=== PATIENT | female | born 1950 | race Caucasian/White ===

== ENCOUNTER → 2017-01-11 | Outpatient (CLI) | payer MEDICARE | END | disposition home or self-care (01) | LOC: GMAJ 12:04 | PROVIDERS: ATTEND Family Medicine | DX: M25.561 Pain in right knee (principal) ==

== ENCOUNTER → 2017-01-11 | Outpatient (CLI) | payer MEDICARE ==
--- NOTE | 2017-01-12 08:30 | US ---
EXAM DESCRIPTION: Venous,Lower Extremity RT CLINICAL HISTORY: Right leg pain. COMPARISON: None Available. TECHNIQUE: Right lower extremity venous grayscale, spectral, and color Doppler sonographic images. FINDINGS: There is no DVT identified. There is normal color flow observed with good flow augmentation. All deep veins compress normally. IMPRESSION: Negative for DVT Electronically signed by: Mack Tripp MD 01/12/2017 8:29 AM CDT
--- NOTE | 2017-01-12 09:13 | MRI ---
MRI right knee without contrast INDICATION: Knee pain primarily arthritis TECHNIQUE: Noncontrast MR imaging right knee standard protocol FINDINGS: There is a large joint effusion. Small Leong's cyst. There is advanced multifocal grade 4 chondrosis with osteoarthrosis and joint space narrowing lateral patellofemoral joint. Moderate lateral patellofemoral tracking/subluxation. Multifocal subchondral edema and cystic change in the lateral patellofemoral joint. Extensor tendons are intact. The sagittal plane of imaging is angled with the medial femoral condyle instead of the lateral which produces the indistinct appearance of the cruciate ligaments. There is no evidence of acute cruciate ligament disruption. There is diffuse degenerative signal posterior horn medial meniscus with mild fraying posteriorly. Mild degenerative change lateral meniscus as well especially posterior horn. The plane of imaging also produces an abnormal appearance of the menisci. There is scarring/fibrosis in the anterior intercondylar region at the posterior margin of Hoffa's fat. Multifocal chondral fissuring in the tibiofemoral compartments up to grade 4 indicating mild osteoarthrosis of the tibiofemoral compartments. No disruption of the collateral ligaments. IMPRESSION: Tricompartmental chondrosis up to grade 4 with osteoarthrosis most pronounced in the lateral patellofemoral compartment Lateral patellar tracking/subluxation Large joint effusion and small Leong's cyst Degenerative menisci Otherwise see above discussion Electronically signed by: Tutu Leon MD 01/12/2017 9:13 AM CDT
== END | disposition home or self-care (01) ==
LOC: MRI 11:59
PROVIDERS: ATTEND Family Medicine
DX: M17.11 Unilateral primary osteoarthritis, right knee (principal); R60.0 Localized edema

== ENCOUNTER → 2017-02-17 | Outpatient (CLI) | payer MEDICARE ==
--- NOTE | 2017-02-18 09:58 | MAM ---
History: Well woman exam. Date of exam: 02/17/2017 Services provided: Bilateral full field digital screening mammography. CAD, the images were reviewed with R2 computer aided detection. FINDINGS: Glandular tissue is scattered glandular contour with nodular pattern and increased mammographic density is compared with study from 2012. No dominant mass, architectural distortion or clustered microcalcification. IMPRESSION: Benign exam Recommendation: Routine annual mammography BIRAD CATEGORY: 2 BENIGN Electronically signed by: Jessi Yang MD 02/18/2017 9:58 AM CDT Workstation: [id number]
== END | disposition home or self-care (01) ==
LOC: MAMMO 09:33
PROVIDERS: ATTEND Family Medicine
DX: Z12.31 Encounter for screening mammogram for malignant neoplasm of breast (principal)

== ENCOUNTER → 2017-06-15 | Outpatient (CLI) | payer MEDICARE | END | disposition home or self-care (01) | LOC: GMAJ 11:26 | PROVIDERS: ATTEND Family Medicine | DX: E03.9 Hypothyroidism, unspecified (principal) ==

== ENCOUNTER → 2017-10-12 | Outpatient (CLI) | payer MEDICARE | LOC: GMAJ 11:53 | PROVIDERS: ATTEND Family Medicine | DX: E03.9 Hypothyroidism, unspecified (principal) ==

== ENCOUNTER → 2017-11-01 | Outpatient (CLI) | payer MEDICARE | LOC: RESP 13:53 | PROVIDERS: ATTEND Family Medicine | DX: R30.0 Dysuria (principal); N99.3 Prolapse of vaginal vault after hysterectomy; R94.31 Abnormal electrocardiogram [ECG] [EKG] ==

== ENCOUNTER → 2018-02-07 | Outpatient (CLI) | payer MEDICARE | LOC: GMAJ 11:03 | PROVIDERS: ATTEND Family Medicine | DX: E03.9 Hypothyroidism, unspecified (principal) ==

== ENCOUNTER → 2018-03-01 | Outpatient (CLI) | payer MEDICARE ==
--- NOTE | 2018-03-07 08:59 | MAM ---
EXAM DESCRIPTION: 3D Screening BILATERAL : Digital Mammography. CLINICAL HISTORY: 68 years Female SCREENING . No complaints. 2 sisters with breast cancer. Childbirth. Postmenopausal. No HRT. COMPARISON: 2-D digital screening bilateral study 02/17/2017. Report from prior examination also reviewed. TECHNIQUE: Bilateral CC and MLO projection full-field images, 3-D tomosynthesis digital mammographic technique. CAD not utilized. FINDINGS: The breast parenchymal density pattern is: Heterogeneously dense breast tissue, which may obscure small masses. No skin thickening or nipple retraction. Bilateral solitary microcalcifications. Bilateral intramammary lymph nodes. No new focal, stellate mass or density, focal asymmetry , and no suspicious microcalcifications bilaterally. Stable mammograms compared to prior study, taking into account differences in mammographic technique. IMPRESSION: BI-RADS CATEGORY: 2 - BENIGN FINDINGS. FOLLOW UP: Routine digital bilateral screening, one year interval from February 2018. Written communication explaining the IMPRESSION and follow-up, will be mailed to the patient and referring health care provider. According to the [employer], yearly mammograms are recommended starting at age 40 and continuing as long as a woman is in good health. Any breast change noted on a breast self-exam should be reported promptly to the patient's healthcare provider. Breast MRI is recommended for women with an approximately 20-25% or greater lifetime risk of breast cancer, including women with a strong family history of breast or ovarian cancer and women who have been treated for Hodgkin's disease. A negative mammographic report should not delay tissue diagnosis in patients with significant clinical history or physical findings. Extremely dense breast tissue limits the sensitivity of digital mammography. Electronically signed by: Candelario Mas MD 03/07/2018 8:58 AM CDT
== END ==
LOC: MAMMO 09:30
PROVIDERS: ATTEND Family Medicine
DX: Z12.31 Encounter for screening mammogram for malignant neoplasm of breast (principal)

== ENCOUNTER → 2018-06-09 | Outpatient (CLI) | payer MEDICARE | LOC: GMAJ 11:50 | PROVIDERS: ATTEND Family Medicine | DX: E03.9 Hypothyroidism, unspecified (principal) ==

== ENCOUNTER → 2018-06-24 | Outpatient (CLI) | payer MEDICARE ==
--- NOTE | 2018-06-24 11:17 | US ---
EXAM DESCRIPTION: Abdomen,Complete: Ultrasound. CLINICAL HISTORY: EPIGASTRIC PAIN COMPARISON: None Available. TECHNIQUE: Transabdominal scannin-dimensional and Doppler modes. FINDINGS: Gallbladder: Multiple gallstones with patient change in position. Echogenic with posterior shadowing. Largest diameter 8 mm. Wall thickness 2.1 mm with no fluid. Nontender with transducer pressure.. Common bile duct: 6.0 mm, normal caliber. Liver: Long axis right lobe is 14.4 cm. Normal echogenicity. Unremarkable. Pancreas: Normal size and echogenicity. Duct not seen.. Abdominal aorta: Normal caliber proximal segment to the distal bifurcation. Minimal intimal changes of atherosclerosis. IVC: visualized; normal caliber. Spleen normal echogenicity; long axis measurement is 7.1 cm. Right kidney: 9.2 cm long axis with normal cortical thickness and echogenicity. No hydronephrosis or perinephric fluid. Left kidney: 9.2 x 4.5 x 4.0 with normal cortical thickness and echogenicity. No hydronephrosis or perinephric fluid. IMPRESSION: 1. Multiple gallstones with no wall thickness or fluid, consistent with cholelithiasis. Nontender with transducer pressure. Common bile duct diameter upper normal limits. No ascites. 2. Liver and pancreas are unremarkable. Normal caliber of the abdominal aorta and proximal IVC. 3. Normal ultrasound of the spleen and bilateral kidneys. Electronically signed by: Candelario Mas MD 06/24/2018 11:16 AM CDT
== END ==
LOC: US 09:25
PROVIDERS: ATTEND Family Medicine
DX: K80.20 Calculus of gallbladder without cholecystitis without obstruction (principal); R10.13 Epigastric pain

== ENCOUNTER → 2018-07-19 | Outpatient (CLI) | payer MEDICARE | LOC: GMAJ 10:49 | PROVIDERS: ATTEND Family Medicine | DX: E03.9 Hypothyroidism, unspecified (principal) ==

== ENCOUNTER → 2018-07-20 | Outpatient (CLI) | payer MEDICARE ==
--- NOTE | 2018-07-20 13:58 | CT ---
Procedure: CT ABDOMEN PELVIS WITHOUT IV CONTRAST Exam Date: 07/20/2018 Ordering Provider: JUAN DIEGO REAL Clinical Indication: Cholelithiasis, thickening of the stomach on recent endoscopy. Comparison: 06/24/2018 abdominal ultrasound TECHNIQUE: 2.5mm images were taken through the abdomen and pelvis without the administration of nonionic intravenous contrast material. Oral contrast was not administered. Coronal and sagittal reformatted images were generated. This exam was performed according to our departmental dose optimization program which includes use of automated exposure control, adjustment of the mA and/or kV according to patient size and/or use of iterative reconstruction technique. FINDINGS: Lower chest: Subsegmental atelectasis/scarring in the right middle lobe and lingula. Abdomen: Liver and biliary system: Subcentimeter low-density liver lesion too small to characterize. Tiny gallstones. No biliary ductal dilatation. Spleen: Unremarkable Pancreas: Unremarkable Adrenal glands: Unremarkable Kidneys, ureters, bladder: No hydronephrosis in either kidney. Ureters are unremarkable. Bladder is largely decompressed. Lymph nodes: No lymphadenopathy by CT size criteria. Retroperitoneum, abdominal wall, peritoneal cavity: No ascites. No free air. Small fat-containing umbilical hernia. Vessels: No abdominal aortic aneurysm. Pelvis: Lymph nodes: No lymphadenopathy Bowel: No bowel obstruction. No findings to suggest acute appendicitis. No gastric mass identified on this noncontrast examination. Large colonic stool burden. Bones: Scoliosis. Multilevel spondylosis. IMPRESSION: 1. No gastric mass identified on this noncontrast examination. 2. Cholelithiasis. 3. Large colonic stool burden. Electronically signed by: Sanjay Hi MD 07/20/2018 1:57 PM [facility]
== END ==
LOC: CT 07:56
PROVIDERS: ATTEND Internal Medicine Gastroenterology
DX: R93.3 Abnormal findings on diagnostic imaging of other parts of digestive tract (principal); R10.10 Upper abdominal pain, unspecified; K80.20 Calculus of gallbladder without cholecystitis without obstruction; K59.00 Constipation, unspecified

== ENCOUNTER → 2018-09-09 | Outpatient (CLI) | payer MEDICARE | LOC: GMAJ 10:44 | PROVIDERS: ATTEND Family Medicine | DX: E03.9 Hypothyroidism, unspecified (principal) ==

== ENCOUNTER → 2018-10-11 | Outpatient (CLI) | payer MEDICARE | LOC: GMAJ 10:33 | PROVIDERS: ATTEND Family Medicine | DX: E03.9 Hypothyroidism, unspecified (principal) ==

== ENCOUNTER → 2019-01-12 | Outpatient (CLI) | payer MEDICARE | LOC: GMAJ 12:39 | PROVIDERS: ATTEND Family Medicine | DX: E03.9 Hypothyroidism, unspecified (principal); E11.9 Type 2 diabetes mellitus without complications; E78.2 Mixed hyperlipidemia ==

== ENCOUNTER → 2019-03-10 | Outpatient (CLI) | payer MEDICARE ==
--- NOTE | 2019-03-13 09:09 | MAM ---
EXAM DESCRIPTION: 3D Screening BILATERAL : Digital Mammography. CLINICAL HISTORY: 69 years Female ANNUAL SCREENING . No complaints. Sister with breast cancer. Childbirth. Postmenopausal. No HRT. Lifetime risk of developing breast cancer (Tyrer-Cuzick model)(%): 11.8. COMPARISON: Bilateral screening digital breast tomosynthesis 03/01/2018. TECHNIQUE: Bilateral CC and MLO projection full-field images, digital tomosynthesis mammographic technique. Bilateral digital 2-D full-field MLO images. CAD not available for tomosynthesis or 2-D images. FINDINGS: The breast parenchymal density pattern is: Heterogeneously dense breast tissue, which may obscure small masses. No skin thickening or nipple retraction. Multiple bilateral solitary microcalcifications. No new focal, stellate mass or density, focal asymmetry , and no suspicious microcalcifications bilaterally. Stable mammograms compared to prior study. IMPRESSION: Benign exam. BIRAD CATEGORY: 2 BENIGN FINDINGS. RECOMMENDATIONS: FOLLOW UP: Routine digital bilateral mammographic screening, one year interval from February 2019. Written communication explaining the IMPRESSION and follow-up, will be mailed to the patient and referring health care provider. According to the [employer], yearly mammograms are recommended starting at age 40 and continuing as long as a woman is in good health. Any breast change noted on a breast self-exam should be reported promptly to the patient's healthcare provider. Breast MRI is recommended for women with an approximately 20-25% or greater lifetime risk of breast cancer, including women with a strong family history of breast or ovarian cancer and women who have been treated for Hodgkin's disease. A negative mammographic report should not delay tissue diagnosis in patients with significant clinical history or physical findings. Extremely dense breast tissue limits the sensitivity of digital mammography. Electronically signed by: Candelario Mas MD 03/13/2019 9:06 AM CDT
== END ==
LOC: MAMMO 08:00
PROVIDERS: ATTEND Family Medicine
DX: Z12.31 Encounter for screening mammogram for malignant neoplasm of breast (principal)

== ENCOUNTER 2019-04-10 05:40 | Day surgery (SDC) | payer MEDICARE ==
[2019-04-10] MEDS ORDERED: MOXIFLOXACIN HCL (OPHTH) 1 DROP DROPS ONE (05:54)
[2019-04-10] MEDS ORDERED: TROP 1%/CYCLOPEN 1%/PHENYL 2% DROPS ONE (05:54)
[2019-04-10] MEDS ORDERED: PROPARACAINE 0.5% OPHTH SOL 15 ML BTTL ONE (05:54)
[2019-04-10] MEDS ORDERED: MIDAZOLAM INJ 2 MG/2 ML VIAL ONE ×2 (07:01→07:30)
[2019-04-10] MEDS ORDERED: PROPARACAINE 0.5% OPHTH SOL 15 ML BTTL LEFT_EYE ONE (07:24)
[2019-04-10] MEDS ORDERED: DEXAMETHASONE 0.1% OPHTH SOL 1 DROP LEFT_EYE ONE ×2 (07:34→07:44)
[2019-04-10] MEDS ORDERED: MOXIFLOXACIN HCL (OPHTH) 1 DROP DROPS LEFT_EYE ONE ×2 (07:34→07:44)
[2019-04-10] MEDS ORDERED: LIDOCAINE 1% MPF 2 ML VIAL INJ ONE (07:34)
[2019-04-10] MEDS ORDERED: TOBRAMYCIN SULF 0.3 % OPHT SOL 1 DROP LEFT_EYE ONE ×2 (07:35→07:44)
[2019-04-10] MEDS ORDERED: BRIMONIDINE 0.2% OPHTH DROPS LEFT_EYE ONE ×2 (07:35→07:44)
== END 2019-04-10 08:30 | disposition home or self-care (01) ==
LOC: AMB 05:40
PROVIDERS: ATTEND Ophthalmology
DX: H25.12 Age-related nuclear cataract, left eye (principal); E11.36 Type 2 diabetes mellitus with diabetic cataract; E07.9 Disorder of thyroid, unspecified; Z79.84 Long term (current) use of oral hypoglycemic drugs; Z79.1 Long term (current) use of non-steroidal anti-inflammatories (NSAID); Z79.890 Hormone replacement therapy; Z79.899 Other long term (current) drug therapy; Z88.0 Allergy status to penicillin; Z88.1 Allergy status to other antibiotic agents; Z88.5 Allergy status to narcotic agent; Z88.6 Allergy status to analgesic agent; Z88.8 Allergy status to other drugs, medicaments and biological substances
CPT/HCPCS: 00142; 36416; 66984; 82948; J2250

== ENCOUNTER → 2019-05-23 | Outpatient (CLI) | payer MEDICARE ==
--- NOTE | 2019-05-24 09:16 | MRI ---
EXAM DESCRIPTION: Cervical Spine: MRI. CLINICAL HISTORY: 69 years Female OTHER SPONDYLOSIS CERVICAL REGION COMPARISON: Cervical spine radiographs 05/03/2019. TECHNIQUE: Multiplanar, high-field MRI, multiple sequences, non-contrast Cervical spine. FINDINGS: C2-C3: Disc desiccation and anterior disc space loss. No posterior bulging. Canal and neural foramina are patent. C3-C4: Disc is desiccated with moderate disc space loss, and Posterior midline herniation 4.2 mm impressing on the cord and minimal superior extrusion. Posterior ligament thickening and minimal canal stenosis. Disc also protruding into the left neural foramen with left uncinate spur, and left facet arthrosis resulting in neural foraminal stenosis. Right uncinate spur and disc bulge and mild right facet arthrosis resulting in moderate neural foraminal narrowing. C4-C5: Disc desiccation and trace anterolisthesis. Diffuse disc space loss anterior and posterior with fluid signal in the disc. Left uncinate spur and hypertrophic left facet arthrosis with mild to moderate left neural foraminal narrowing. Left posterior disc and osteophyte bulge into the canal abutting the left C5 nerve. Moderate left paracentral canal narrowing. Right neuroforamen is patent. C5-C6: Disc desiccation and moderate disc space loss. Anterior posterior disc osteophyte complex bulging. Also disc osteophyte complex bulging into the left foramen. Left facet unremarkable with moderate to severe left neural foraminal narrowing. Right neuroforamen is patent. Left posterior disc osteophyte bulge abutting the cord and the left C6 nerve. Moderate left paracentral canal narrowing. C6-C7: Disc desiccation and minimal disc space loss. Anterior disc osteophyte complex bulge with ridging. Posterior disc osteophyte bulge 2 mm not abutting the cord. Minimal endplate reactive changes more C6 and C7. Right uncinate spur and minimal hypertrophic arthrosis right facet with borderline right neural foraminal stenosis. Hyperintense T2 annular fissure of the left lateral aspect of the disc abutting the left neural foramen which is moderately narrowed. Left facet negative. C7-T1: Disc desiccation with disc space preserved. Tiny posterior bulge. Bilateral mild hypertrophic facet arthrosis more on the left. Trace anterolisthesis. Left uncinate spur. Mild left neural foraminal narrowing. Canal and right neuroforamen patent. Normal signal in the T1-T2 disc with no bulging. Disc spaces preserved. Canal and neural foramina are patent. Facet joints are negative. Spinal alignment kyphotic C2-C6. No cord compression or cord edema. Atlantoaxial joint with hypertrophic arthrosis and the anterior canal ligament almost abutting the anterior cord.. Base of the cerebellar tonsils is just above the foramen magnum. Paravertebral soft tissues unremarkable.. Vertebral bodies are not compressed at any level. Normal marrow signal in the remaining vertebral bodies and the posterior elements. IMPRESSION: 1. Multiple levels of spondylosis particularly C3-4 down to C6-7 with disc space loss, desiccated bulging discs, hypertrophic facet arthrosis, ligament thickening. 2. Posterior midline herniation of the C3-4 disc impressing on the cord and entering the left neural foramen which is also stenotic. Impingement of the left C4 nerve. 3. Moderate to severe left neural foraminal narrowing at C5-C6. Borderline right neural foraminal stenosis at C6-C7.. Electronically signed by: Candelario Mas MD 05/24/2019 9:14 AM CDT
== END ==
LOC: MRI 07:53
PROVIDERS: ATTEND Family Medicine
DX: M47.892 Other spondylosis, cervical region (principal); M50.21 Other cervical disc displacement, high cervical region; M50.323 Other cervical disc degeneration at C6-C7 level; M48.02 Spinal stenosis, cervical region; R10.814 Left lower quadrant abdominal tenderness; G43.519 Persistent migraine aura without cerebral infarction, intractable, without status migrainosus

== ENCOUNTER → 2019-05-25 | Outpatient (CLI) | payer MEDICARE ==
--- NOTE | 2019-05-25 11:13 | MRI ---
EXAM DESCRIPTION: Brain w/o Contrast: MRI. CLINICAL HISTORY: PERSISTENT MIGRAINE AURA WITHOUT CEREBRAL INFARCTION, INTRACTABLE COMPARISON: MRI scan of the brain without gadolinium IV contrast February 2013. TECHNIQUE: Multiplanar, high-field MRI unit, multiple diffusion sequences, multiple conventional sequences without contrast. FINDINGS: Small bilateral foci of hyperintense FLAIR and T2-weighted signal in the periventricular white matter abutting the frontal horns of the lateral ventricles.. No hemorrhage, no cerebral edema, no mass-effect. No diffusion restriction. Normal signal in the bilateral basal ganglia. No hemorrhage, no diffusion restriction, no mass effect. Normal signal in the brainstem and cerebellar hemispheres. No hemorrhage, no parenchymal edema, no mass-effect. Concordance of the diffusion and non-diffusion sequences with no diffusion restriction. Cortical sulci, ventricles, and other CSF spaces, and the subdural spaces are normally configured for patients age.. No effacement or displacement. No midline shift. No extra-axial hemorrhage. Normal flow signal void in the major vessels of the [place], and the venous sinuses. IACs are symmetric bilaterally. No fluid in the bilateral mastoid air cells. No mass effect in the bilateral cerebellopontine angles. Pituitary gland occupies most of the sella. Base of the cerebellar tonsils is at the level of the foramen magnum. Normal signal in the bilateral paranasal sinuses.. The bony calvarium is intact. IMPRESSION: 1. Minimal periventricular white matter signal change abutting the bilateral frontal horns of the lateral ventricles, with no mass effect, no hemorrhage, and no diffusion restriction. Stable since the prior study. Most likely age-related or cerebral microvascular disease and aging. 2. Normal noncontrast MRI diffusion study with no evidence of acute or subacute significant ischemia or infarction. Electronically signed by: Candelario Mas MD 05/25/2019 11:11 AM CDT
== END ==
LOC: MRI 07:47
PROVIDERS: ATTEND Family Medicine
DX: M47.892 Other spondylosis, cervical region (principal); G43.519 Persistent migraine aura without cerebral infarction, intractable, without status migrainosus; R10.814 Left lower quadrant abdominal tenderness

== ENCOUNTER → 2019-05-30 | Outpatient (CLI) | payer MEDICARE ==
--- NOTE | 2019-05-30 15:16 | CT ---
EXAM DESCRIPTION: Abdoment/Pelvis w/o Contrast CLINICAL HISTORY: LEFT LOWER QUADRANT ABDOMINAL TENDERNESS COMPARISON: July 20, 2018 TECHNIQUE: CT of the abdomen and Pelvis was performed without IV contrast. This exam was performed according to our departmental dose-optimization program, which includes automated exposure control, adjustment of the mA and/or kV according to patient size and/or use of iterative reconstruction technique. FINDINGS: Mild subsegmental atelectasis or scarring in the lung bases. No pneumoperitoneum, adenopathy or ascites. Mural calcification in the abdominal aorta. No hiatal hernia or gastric wall thickening. The gallbladder is surgically absent. The liver, spleen, pancreas, adrenals and kidneys are unremarkable for noncontrast technique. Small uncomplicated fat-containing umbilical hernia. No dilated small bowel loops or mesenteric inflammation. The bladder is suboptimally distended and not well evaluated. The uterus and ovaries are not seen, correlate with surgical history. Moderate amount of colonic stool and gas, no colonic wall thickening or pericolonic inflammation. Degenerative changes in the thoracolumbar spine multiple levels including degenerative disc and facet joint disease. IMPRESSION: No acute abnormality in the abdomen or pelvis to explain left lower quadrant pain. Moderate amount of colonic stool and gas in the nonacute findings as detailed above. Electronically signed by: Steven Finley MD 05/30/2019 3:14 PM CDT
== END ==
LOC: CT 07:54
PROVIDERS: ATTEND Family Medicine
DX: R10.814 Left lower quadrant abdominal tenderness (principal); M47.892 Other spondylosis, cervical region; G43.519 Persistent migraine aura without cerebral infarction, intractable, without status migrainosus

== ENCOUNTER → 2019-09-08 | Outpatient (CLI) | payer MEDICARE | LOC: GMAJ 10:33 | PROVIDERS: ATTEND Family Medicine | DX: E03.9 Hypothyroidism, unspecified (principal); E11.40 Type 2 diabetes mellitus with diabetic neuropathy, unspecified; E78.2 Mixed hyperlipidemia ==

== ENCOUNTER → 2020-01-09 | Outpatient (CLI) | payer MEDICARE | LOC: GMAJ 10:44 | PROVIDERS: ATTEND Family Medicine | DX: E03.9 Hypothyroidism, unspecified (principal); E11.9 Type 2 diabetes mellitus without complications ==

== ENCOUNTER → 2020-03-15 | Outpatient (CLI) | payer MEDICARE ==
--- NOTE | 2020-03-18 10:56 | MAM ---
EXAM DESCRIPTION: 3D Screening BILATERAL : Digital Mammography. CLINICAL HISTORY: 70 years Female ANNUAL SCREENING no complaints. Female sibling with breast cancer in the fourth decade. Menarche age 13. Childbirth age 23. Menopause age unknown. No HRT. Lifetime risk of developing breast cancer (Tyrer-Cuzick model)(%): 12.5. COMPARISON: Bilateral screening digital breast tomosynthesis February 2019 and February 2018. TECHNIQUE: Bilateral CC and MLO projection full-field images, digital tomosynthesis mammographic technique. Bilateral digital 2-D full-field MLO images. CAD available for 2-D images. FINDINGS: The breast parenchymal density pattern is: Heterogeneously dense breast tissue, which may obscure small masses. No skin thickening or nipple retraction. Bilateral solitary and grouped microcalcifications. No new focal, stellate mass or density, focal asymmetry , and no suspicious microcalcifications bilaterally. Stable mammograms compared to prior study. IMPRESSION: Benign exam. BIRAD CATEGORY: 2 BENIGN FINDINGS. RECOMMENDATIONS: FOLLOW UP: Routine digital bilateral mammographic screening, one year interval from February 2020. Written communication explaining the IMPRESSION and follow-up, will be mailed to the patient and referring health care provider. According to the [employer], yearly mammograms are recommended starting at age 40 and continuing as long as a woman is in good health. Any breast change noted on a breast self-exam should be reported promptly to the patient's healthcare provider. Breast MRI is recommended for women with an approximately 20-25% or greater lifetime risk of breast cancer, including women with a strong family history of breast or ovarian cancer and women who have been treated for Hodgkin's disease. A negative mammographic report should not delay tissue diagnosis in patients with significant clinical history or physical findings. Extremely dense breast tissue limits the sensitivity of digital mammography. Electronically signed by: Candelario Mas MD 03/18/2020 10:54 AM CDT
== END ==
LOC: MAMMO 09:59
PROVIDERS: ATTEND Family Medicine
DX: Z12.31 Encounter for screening mammogram for malignant neoplasm of breast (principal)

== ENCOUNTER 2020-03-18 05:17 | Day surgery (SDC) | payer MEDICARE ==
[2020-03-18] MEDS ORDERED: MOXIFLOXACIN HCL (OPHTH) 1 DROP DROPS ONE (05:31)
[2020-03-18] MEDS ORDERED: PROPARACAINE 0.5% OPHTH SOL 15 ML BTTL ONE (05:32)
[2020-03-18] MEDS ORDERED: TROP1%/CYCLOPEN 1%/PHENYL 2.5% DROPS ONE (05:32)
== END 2020-03-18 07:02 | disposition home or self-care (01) ==
LOC: AMB 05:17
PROVIDERS: ATTEND Ophthalmology
DX: H26.492 Other secondary cataract, left eye (principal)

== ENCOUNTER → 2020-04-11 | Outpatient (CLI) | payer MEDICARE ==
--- NOTE | 2020-04-11 18:24 | MRI ---
EXAM DESCRIPTION: Lumbar Spine w/o Contrast : Magnetic Resonance Imaging. CLINICAL HISTORY: LOW BACK PAIN COMPARISON: MRI scan lumbar spine without contrast June 2015. TECHNIQUE: Multiplanar, multiple standard sequences, non contrast MRI, lumbar spine. FINDINGS: L5-S1: The disc is well visualized on axial T2 series 501, image 3. Minimal disc space loss with disc desiccation right side moderate endplate reactive changes with disc spur complex impressing on the soft tissues and the right neural foramen. Posterior broad-based disc bulge. Disc bulge with inferior migration and hyperintense T2 weighted annular fissure. Degenerative hypertrophic changes of the facet joints and posterior flavum ligaments (canal elements). More severe on the right. Right foraminal stenosis and moderate left foraminal narrowing. This has progressed since the prior study. L4-L5: Disc desiccation with disc space loss to the left of midline. Grade 1 anterolisthesis 3 mm. Posterior midline tiny disc bulge. Hypertrophic changes in the canal elements bilaterally more severe on the left. No subarticular recess stenosis. AP canal diameter 10 cm. Moderate to severe bilateral foraminal narrowing. This is progressed since the prior study. L3-L4: Disc desiccation with disc space loss and advanced endplate reactive changes and Schmorl's nodes to the left of midline. Disc osteophyte complex encroaching on the left foramen. This has progressed since the prior study. Posterior broad-based disc bulge. Minimal narrowing of the left subarticular recess. Hypertrophic changes in the canal elements more on the left. Foramina borderline stenotic on the left mild to moderate narrowing on the right. L2-L3: Disc desiccation with minimal disc space loss left of midline. Posterior broad-based bulge. Hypertrophic changes in the canal elements more on the left. Impressing on the left thecal sac. No canal stenosis. Right foraminal stenosis. This is progressed since the prior study. Mild left foraminal narrowing. Hyperintense circumscribed T1 and T2 hemangioma L2. L1-L2: Disc desiccation with advanced endplate reactive changes to the right of midline and disc spur complex encroaching on the right foramen and severe foraminal narrowing. This has progressed since the prior study. Posterior broad-based disc bulge. Hypertrophic changes in the canal elements more advanced on the right. Mild narrowing left foramen. Conus terminates at this level. T12-L1: Disc desiccation with right side disc space loss and tiny posterior bulge. Hypertrophic changes in the canal elements. Canal is patent. Moderate to severe narrowing of the right foramen and left foramen is patent. This has progressed since the prior study. L2-L5 dextroscoliosis and T11-L2 levoscoliosis. Paravertebral soft tissues with muscle atrophy and scoliosis is also affecting the psoas muscles in the left lumbar region with atrophy.. Distal cord normal signal and caliber. Otherwise normal marrow signal in the remaining vertebral bodies and the posterior elements. Vertebral bodies are not compressed at any level. IMPRESSION: 1. Multilevel disc desiccation, disc bulging, spondylosis, mild to severe hypertrophic changes in the facet joints and flavum ligaments, and foraminal narrowing or foraminal stenosis. Degenerative scoliosis is also progressed since the prior study. 2. Posterior annular fissure at L5-S1 with advanced right side spondylosis and right foraminal stenosis which is progressed since the prior study. 3. Advanced spondylosis to the left of midline at L4-L5. Moderate to severe bilateral foraminal narrowing which has progressed since the prior study. 4. Spondylosis has increased on the left at L3-L4 since the prior study. Borderline left foraminal stenosis. 5. Multifactorial right foraminal stenosis at L2-L3 has progressed since the prior study. Electronically signed by: Candelario Mas MD 04/11/2020 6:22 PM CDT
== END ==
LOC: MRI 07:46
PROVIDERS: ATTEND Family Medicine
DX: M47.896 Other spondylosis, lumbar region (principal); M51.36 Other intervertebral disc degeneration, lumbar region; M51.37 Other intervertebral disc degeneration, lumbosacral region; M41.86 Other forms of scoliosis, lumbar region; M46.96 Unspecified inflammatory spondylopathy, lumbar region; M24.28 Disorder of ligament, vertebrae; M48.07 Spinal stenosis, lumbosacral region

== ENCOUNTER 2020-05-27 05:50 | Day surgery (SDC) | payer MEDICARE ==
[2020-05-27] MEDS ORDERED: BUPIVACAINE 0.5% 30 ML VIAL INJ ONE ×2 (07:27→09:16)
[2020-05-27] MEDS ORDERED: LIDOCAINE 1% 10 ML VIAL INJ ONE ×4 (07:27→09:31)
[2020-05-27] MEDS ORDERED: BETAMETHASONE ACETATE/BETAMETH 6 MG/ML VIAL IM ONE ×2 (09:17→09:57)
== END 2020-05-27 09:55 | disposition home or self-care (01) ==
LOC: AMB 05:50
PROVIDERS: ATTEND Family Medicine Sports Medicine
DX: M47.816 Spondylosis without myelopathy or radiculopathy, lumbar region (principal); M48.062 Spinal stenosis, lumbar region with neurogenic claudication; M41.25 Other idiopathic scoliosis, thoracolumbar region; E11.42 Type 2 diabetes mellitus with diabetic polyneuropathy; E78.5 Hyperlipidemia, unspecified; E78.2 Mixed hyperlipidemia; E03.9 Hypothyroidism, unspecified; G20 Parkinson's disease; G25.0 Essential tremor; Z88.5 Allergy status to narcotic agent; Z88.0 Allergy status to penicillin; Z88.1 Allergy status to other antibiotic agents; Z91.041 Radiographic dye allergy status; Z79.899 Other long term (current) drug therapy

== ENCOUNTER 2020-06-10 05:09 | Day surgery (SDC) | payer MEDICARE ==
[2020-06-10] MEDS ORDERED: LIDOCAINE 1% 10 ML VIAL INJ ONE ×2 (07:03→08:19)
[2020-06-10] MEDS ORDERED: BETAMETHASONE ACETATE/BETAMETH 6 MG/ML VIAL IM ONE ×2 (07:04→08:19)
[2020-06-10] MEDS ORDERED: DEXAMETHASONE INJ 10 MG/ML VIAL ONE (07:04)
[2020-06-10] MEDS ORDERED: BUPIVACAINE 0.5% 30 ML VIAL INJ ONE ×2 (07:05→08:19)
== END 2020-06-10 08:58 | disposition home or self-care (01) ==
LOC: AMB 05:09
PROVIDERS: ATTEND Family Medicine Sports Medicine
DX: M47.816 Spondylosis without myelopathy or radiculopathy, lumbar region (principal); M54.5 Low back pain; M48.061 Spinal stenosis, lumbar region without neurogenic claudication; M41.25 Other idiopathic scoliosis, thoracolumbar region; E78.5 Hyperlipidemia, unspecified; E03.9 Hypothyroidism, unspecified; G20 Parkinson's disease; G25.0 Essential tremor; Z88.0 Allergy status to penicillin; Z88.5 Allergy status to narcotic agent; Z88.8 Allergy status to other drugs, medicaments and biological substances; Z79.84 Long term (current) use of oral hypoglycemic drugs; Z79.899 Other long term (current) drug therapy

== ENCOUNTER 2020-10-25 13:33 | Emergency (ER) | payer MEDICARE ==
[2020-10-25] MEDS ORDERED: traMADol 37.5MG/APAP 325MG 1 EA TAB PO ONE (13:51)
--- NOTE | 2020-10-25 13:56 | ED.PDOC ---
History of Present Illness - General Chief Complaint: Trauma Stated Complaint: fall Time Seen by Provider: 10/25/20 13:49 Source: patient, RN notes reviewed, Vital Signs reviewed, EMS notes reviewed Exam Limitations: no limitations Additional Information: 70-year-old female, with no Parkinson, history of thyroid disease, presents to the ER because of a fall that happened 3 days ago patient was taking a shower, which she kind of her fluid and she fell backwards hitting the back of her head, patient is also complaining of chest pain due to fall, and bilateral shoulder pain but no blood thinners Patient is in her usual medical baseline, patient said that she has had multiple falls in the past due to Parkinson Patient stated that she did not come to the hospital because she thought she was no get better, she has been taking Tylenol without any improvement of symptoms Patient denies cigarettes alcohol or drug - History of Present Illness Timing/Duration: other - 3 days Improving Factors: nothing Worsening Factors: nothing Associated Symptoms: denies symptoms Allergies/Adverse Reactions: Allergies Cephalosporins Allergy (Intermediate, Verified 09/01/12 11:26) Rash Hives Cefadroxil Allergy (Verified 04/10/19 08:26) Codeine Allergy (Verified 09/01/12 11:26) Hydrocodone Allergy (Verified 04/10/19 08:26) Iodine Allergy (Verified 09/01/12 11:26) Penicillin G Allergy (Verified 09/01/12 11:26) Home Medications: Ambulatory Orders Citalopram Hydrobromide [Celexa] 40 mg PO QD 08/15/12 metFORMIN XR [Glucophage Xr] 500 mg PO BID 08/15/12 Rotigotine [Neupro] 6 mg TD DAILY 03/17/14 Gabapentin [Neurontin] 300 mg PO TID 11/11/15 Levothyroxine Sodium [Synthroid] 0.5 mg PO DAILY 11/11/15 Pravastatin Sodium 40 mg PO DAILY 11/11/15 cloNAZepam [Klonopin] 1 mg PO BID 11/11/15 diphenhydrAMINE HCL [Benadryl] 25 mg PO Q6H PRN 11/14/15 Carbidopa-Levodopa [Rytary 48.75-195 mg] 1 tablet PO DAILY 06/10/20 traMADol 37.5MG/APAP 325MG [Ultracet] 1 ea PO .Q4H 6 Days #24 tab 10/25/20 traMADol 37.5MG/APAP 325MG [Ultracet] 1 ea PO .Q4H 6 Days #24 tab 10/25/20 Past Medical History (General) - Patient Medical History Hx Seizures: No Hx Stroke: No Hx Asthma: No Hx of COPD: No Hx Cardiac Disorders: No Hx Congestive Heart Failure: No Hx Pacemaker: No Hx Hypertension: No Hx Thyroid Disease: Yes Hx Diabetes: Yes - FSBS ORDERED Hx MRSA: No - Social History Hx Tobacco Use: No Hx Chewing Tobacco Use: No Hx Alcohol Use: No Hx Substance Use: No Hx Physical Abuse: No Hx Emotional Abuse: No Family Medical History - Family History Mother Family History: No Known Physical Exam - Physical Exam General Appearance: Obvious distress, Well Developed, Well Groomed, Well Hydrated, Well Nourished Eye Exam: bilateral normal, bilateral abnormal EOM Ears, Nose, Throat: hearing grossly normal, normal ENT inspection, normal pharynx Neck: non-tender, full range of motion, supple, normal inspection Respiratory: other - tender to palpation above the sternum Cardiovascular/Chest: normal peripheral pulses, regular rate, rhythm, no edema, no gallop, no JVD Peripheral Pulses: radial,right: 2+, radial,left: 2+ Gastrointestinal/Abdominal: normal bowel sounds, non tender, no organomegaly, no pulsatile mass Back Exam: normal inspection, no CVA tenderness, no vertebral tenderness Extremity: other - bialteral shoulder pain, without deformities Neurologic: saddle and side wire stitcher II-XII nml as tested, no motor/sensory deficits, alert, normal mood/affect, oriented x 3 Skin Exam: normal color Progress - Progress Progress: 70-year-old female who presents to the office for follow-up patient has had multiple falls in the past because of parkison patient hit her head, Patient is on no blood thinners, patient GCS is 15, given patient's age I ordered a head CT that did not show evidence of epidural subdural intracranial hemorrhage, cervical spine CT was negative bilateral shoulder x-ray negative for fractures or subluxation, she has had some mild point tenderness in the anterior chest wall area without evidence of any sternal fractures, patient is awake alert in no distress will be discharged home with her mother for pain, and postconcussive syndrome instruction 10/25/20 15:17 Departure - Departure Clinical Impression: Sprain Fall Qualifiers: Encounter type: initial encounter Qualified Code(s): W19.XXXA - Unspecified fall, initial encounter Head trauma Qualifiers: Encounter type: initial encounter Qualified Code(s): S09.90XA - Unspecified injury of head, initial encounter Disposition: Discharge to Home or Self Care Departure Forms: ED Discharge - Pt. Copy, Patient Portal Self Enrollment Instructions: DI for Trauma, Shoulder Sprain, Concussion in Adults Diet: resume usual diet Referrals: Santiago Navas MD [Primary Care Provider] - 1-2 Weeks Prescriptions: traMADol 37.5MG/APAP 325MG [Ultracet] 1 ea PO .Q4H 6 Days #24 tab traMADol 37.5MG/APAP 325MG [Ultracet] 1 ea PO .Q4H 6 Days #24 tab Home Medications: Ambulatory Orders Citalopram Hydrobromide [Celexa] 40 mg PO QD 08/15/12 metFORMIN XR [Glucophage Xr] 500 mg PO BID 08/15/12 Rotigotine [Neupro] 6 mg TD DAILY 03/17/14 Gabapentin [Neurontin] 300 mg PO TID 11/11/15 Levothyroxine Sodium [Synthroid] 0.5 mg PO DAILY 11/11/15 Pravastatin Sodium 40 mg PO DAILY 11/11/15 cloNAZepam [Klonopin] 1 mg PO BID 11/11/15 diphenhydrAMINE HCL [Benadryl] 25 mg PO Q6H PRN 11/14/15 Carbidopa-Levodopa [Rytary 48.75-195 mg] 1 tablet PO DAILY 06/10/20 traMADol 37.5MG/APAP 325MG [Ultracet] 1 ea PO .Q4H 6 Days #24 tab 10/25/20 traMADol 37.5MG/APAP 325MG [Ultracet] 1 ea PO .Q4H 6 Days #24 tab 10/25/20
--- NOTE | 2020-10-25 14:52 | CT ---
Study: CT cervical spine. Indication: fall Technique: Axial CT images were acquired through the cervical spine without intravenous contrast. Coronal and sagittal reformats performed. This exam was performed according to our departmental dose-optimization program, which includes automated exposure control, adjustment of the mA and/or kV according to patient size and/or use of iterative reconstruction technique. Comparison: None Findings: No acute fracture identified. Mild kyphosis centered at C5. Multilevel cervical disc disease noted and most pronounced at C4-C5 where there is severe left and mild right neural foraminal narrowing and mild spinal canal narrowing. At C5-C6 there is also moderate left and mild right neural foraminal narrowing as well as mild spinal canal narrowing. Hypertrophic fusion of the bilateral C2-C3 facet joint fusion across the C2-C3 disc space. Fusion of the C4-C5 facet joints and disc space likely present as well. Impression: No acute cervical fracture. Additional findings as above. Electronically signed by: Bonilla Soto MD 10/25/2020 2:51 PM [facility]
--- NOTE | 2020-10-25 14:54 | CT ---
Study: CT of the Head. Indication: fall Technique: Axial CT images of the head were acquired without intravenous contrast. This exam was performed according to our departmental dose-optimization program, which includes automated exposure control, adjustment of the mA and/or kV according to patient size and/or use of iterative reconstruction technique. Comparison: None. Findings: No acute ischemia, acute hemorrhage, mass, mass effect, midline shift, or extra-axial fluid collection identified by CT. Ventricles are normal in configuration without hydrocephalus. Patchy hypoattenuation of the periventricular and subcortical white matter noted. This is nonspecific but most consistent with chronic microvascular ischemic change. Global parenchymal volume loss and intracranial atherosclerosis noted as well. Paranasal sinuses are adequately aerated. Mastoid air cells are adequately aerated. Osseous structures and soft tissues are unremarkable. Impression: No acute intracranial abnormality by CT. Senescent changes. Electronically signed by: Bonilla Soto MD 10/25/2020 2:53 PM [facility]
--- NOTE | 2020-10-25 14:54 | RAD ---
Study: Single Frontal Radiograph of the Chest. Indication:fall Comparison: August 12, 2012 Impression: Heart size normal. Lungs clear. No acute osseous abnormality. Scoliotic changes of the spine. Osteopenia. If this is a new finding, DEXA scan recommended as well as evaluation for possible osteoporosis treatment. Electronically signed by: Bonilla Soto MD 10/25/2020 2:53 PM [facility]
--- NOTE | 2020-10-25 14:55 | RAD ---
Study: 3 Views of the Left Shoulder. Indication: FALL Comparison: None Impression: A.C. and glenohumeral joint alignment normal without acute fracture or dislocation. Mild a.c. and glenohumeral joint osteoarthritis. Osteopenia. If this is a new finding, DEXA scan recommended as well as evaluation for possible osteoporosis treatment. Electronically signed by: Bonilla Soto MD 10/25/2020 2:54 PM [facility]
--- NOTE | 2020-10-25 14:56 | RAD ---
Study: 3 View Right Shoulder Indication: FALL Comparison: None Impression: Truncated distal clavicle. A.C. and glenohumeral joint alignment normal without acute fracture or dislocation. Mild glenohumeral joint osteoarthritis. 4 mm calcification rotator cuff tendon insertions. Osteopenia. If this is a new finding, DEXA scan recommended as well as evaluation for possible osteoporosis treatment. Electronically signed by: Bonilla Soto MD 10/25/2020 2:54 PM [facility]
--- NOTE | 2020-10-25 14:56 | RAD ---
2 radiographs of the sternum Indication: fall Comparison: None Impression: Evaluation is limited due to rotation as well as the degree of osteopenia. Given this limitation, no gross displaced sternal fracture. If high clinical concern for sternal fracture, CT could better evaluate. Electronically signed by: Bonilla Soto MD 10/25/2020 2:[address] [facility]
[2020-10-25 15:58] VITALS: BP 134/86; TEMP 98.1; O2SAT 95
== END 2020-10-25 15:47 | disposition home or self-care (01) ==
LOC: ER 13:33
DX: S09.90XA Unspecified injury of head, initial encounter (principal); T14.8XXA Other injury of unspecified body region, initial encounter; M25.511 Pain in right shoulder; M25.512 Pain in left shoulder; R07.89 Other chest pain; R29.6 Repeated falls; G20 Parkinson's disease; E11.9 Type 2 diabetes mellitus without complications; E07.9 Disorder of thyroid, unspecified; Z79.84 Long term (current) use of oral hypoglycemic drugs; Z79.899 Other long term (current) drug therapy; Z88.0 Allergy status to penicillin; Z88.1 Allergy status to other antibiotic agents; Z88.5 Allergy status to narcotic agent; Z91.041 Radiographic dye allergy status; W18.2XXA Fall in (into) shower or empty bathtub, initial encounter; Y92.9 Unspecified place or not applicable

== ENCOUNTER → 2020-10-29 | Outpatient (CLI) | payer MEDICARE | LOC: NC 11:59 | PROVIDERS: ATTEND Family Medicine | DX: G20 Parkinson's disease (principal); E11.9 Type 2 diabetes mellitus without complications; E03.9 Hypothyroidism, unspecified ==